=== PATIENT | male | born 1970 | race Caucasian/White ===

== ENCOUNTER 2020-04-25 11:37 | Outpatient (CLI) | payer OTHER | END 2020-04-25 11:38 | disposition home or self-care (01) | LOC: NAV RAD 11:37 | PROVIDERS: ATTEND Family Medicine | DX: S13.4XXA Sprain of ligaments of cervical spine, initial encounter (principal); S06.0X0D Concussion without loss of consciousness, subsequent encounter | CPT/HCPCS: 70450; 72040 ==